=== PATIENT | male | born 1995 | race Caucasian/White ===

== ENCOUNTER 2016-04-14 06:22 | Emergency (ER) | payer OTHER ==
[~2016-04-14] VITALS: Ht 177.8 cm; Wt 95.5 kg
[2016-04-14 06:23] VITALS: BP 149/97; PULSE 81; RESP 16; O2SAT 99
--- NOTE | 2016-04-14 06:36 | ED.REPORT ---
HPI-General Illness Date of Service Apr 14, 2016 ED Provider: Russ Tenorio MD A 21 year old male presents to the ED complaining of back pain that began around 0500 this morning. Patient was reportedly moving his tools at work, slipped and "tweaked" back.. The pain is exacerbated by twisting and bending. Patient denies incontinence, fever, difficulty walking or tingling. He denies any other medical complaints at this time. Nursing Notes Stated Complaint: GROUND LEVEL FALL/BACK INJURY Chief Complaint: Back Pain or Injury Nursing Notes Reviewed: Yes Allergies: Coded Allergies: No Known Allergies (Unverified , 04/14/16) General Time Seen by MD: 06:33 Chief Complaint Back pain Hx Obtained From: Patient Arrived By: Walk-in Sudden in Onset?: Yes Onset Occurred: 1 - 4 hours ago Symptom Duration: Since onset Caused by: Accidental Location: : Back Quality: Painful Radiation: : Does not radiate Severity: Current: Mild Severity: Maximum: Moderate Associated with: Denies: Fever, Numb extremities Additional Notes: Back pain Denies incontinence Pertinent Negative: Pt denies other symptoms Exacerbated by: Moving affected area, Standing up Recent Healthcare: No recent doctor visit, No recent hospitalization Past Medical History Past Medical History None reported Past Surgical History None reported Smoking History Unknown if Ever Smoker Social History Other Social History: Good social support, Local resident Ambulatory Status Independent Review of Systems Full Review of Systems Constitutional: Denies: Chills, Fever Cardiovascular: Denies: Chest pain GI: Denies: Abdominal pain, Nausea, Vomiting Male: Denies Incontinence Musculoskeletal: Reports: Back pain Neurologic: Denies: Change LOC, Numbness, Problem walking Complete sys rev & neg: except as marked. Physical Exam Vital Signs Vital Signs Date Time Temp Pulse Resp B/P Pulse Ox O2 Delivery O2 Flow Rate FiO2 04/14/16 06:23 36.6 81 16 149/97 99 Room Air Initial VS: Reviewed Head / Eyes: Atraumatic, Normocephalic, PERRL Neck: Supple, Non-tender, Full range of motion Extremities: Vascular intact, Neuro intact, No swelling, No tenderness Skin: Warm, Dry, No cyanosis Neurologic: Alert, Oriented, Nonfocal Psychiatric: Mood/affect normal, Behavior normal, Normal thought content General/Constitutional: Awake, Alert Respiratory / Chest: Atraumatic, Breath sounds NL, Breath sounds = bilat Cardiovascular: Heart rate NL, Regular rhythm, Heart sounds NL, No gallop, No murmurs, No rubs Abdomen: Atraumatic, Soft, Non-tender, No distention Back: Atraumatic, No midline vertebral tend, No CVA tenderness Flank / Spine / Paraspinal: Positive: Lumbar paraspinal tend... (Diffuse), Thorac paraspinal tend... (Diffuse) Upper Extremities Upper Extremity / MS: Atraumatic, Neurologic intact, Vascular intact Lower Extremity / Pelvis / MS: Atraumatic, Neurologic intact, Vascular intact LOWER EXTREMITIES: 5/5 strength in LE Re-Eval/Medical Decision Med Decision/Clinical Course In summary, the patient is a 21-year-old male in generally good health who presents with diffuse thoracolumbar back pain after slipping on ice this morning and twisting his back. He never fell or struck his back. He has no neurologic complaints and good strength and sensation in his bilateral lower extremities. His examination and history is most consistent with muscle sprain. He has stable vital signs and is in no apparent distress. His pain was treated with Toradol. He will take ibuprofen at home and apply ice pack/ hot packs. I do not feel that imaging studies are indicated. There are no findings on examination or history suggestive of fracture or epidural/ paraspinal abscess. Follow-up and return precautions were reviewed in detail and he was discharged in good condition. Time of Eval: 07:20 Patient Status: Condition improved Re-Evaluation/Progress Note: Patient is rechecked. He is informed of his diagnosis. All of the patient's questions are addressed. He understands and agrees with the treatment plan. Counseled Regarding: Diagnosis, Need for follow-up, When/why to return to ED Discharge & Departure Primary Impression: Back strain Encounter type: initial encounter Qualified Code: S39.012A - Strain of muscle, fascia and tendon of lower back, initial encounter Additional Impression: Fall from slipping on ice Encounter type: initial encounter Qualified Code: W00.9XXA - Unspecified fall due to ice and snow, initial encounter Disposition: Home Discharge Condition All VS Reviewed: Yes Condition: Stable Patient Instructions: Acute Low Back Pain (ED) Additional Instructions: Thank you for seeking care at emergency room. Your results are reassuring that there is no current cause for concern at this time. You should use ice packs and heating as needed for pain. Make sure to stay active over the next few days. You should schedule a follow-up with your primary doctor in the next week is symptoms have not improved. You should return to the ED immediately if you develop any numbness, tingling, lightheadedness, weakness or any other concerning signs or symptoms. Thank you for letting us partake in your care today. Referrals: [facility] Scribe Attestation Portions of this note were transcribed by Nishant Lopez. I, Dr. Tenorio personally performed the history, physical exam and medical decision-making; I reviewed and confirmed the accuracy of the information in the transcribed note. Signed by: Nishant Lopez, 04/14/16, 0745 Russ Tenorio MD Apr 14, 2016 06:36 NISHANT LOPEZ Apr 14, 2016 07:27
== END 2016-04-14 07:28 | disposition home or self-care (01) ==
LOC: SED 06:22
DX: S39.012A Strain of muscle, fascia and tendon of lower back, initial encounter (principal); W00.0XXA Fall on same level due to ice and snow, initial encounter; Y93.89 Activity, other specified; Y92.59 Other trade areas as the place of occurrence of the external cause; Y99.0 Civilian activity done for income or pay